=== PATIENT | male | born 1950 ===

== ENCOUNTER → 2017-10-22 | Outpatient (CLI) | payer MEDICARE, OTHER ==
[~2017-10-22] MED LIST: ATOR10 PO; Advil200 M1 PO; GLUC500 PO; UBID10 PO
== END | disposition home or self-care (01) ==
LOC: LAB SHORT 17:51 → LAB EV 17:51
DX: N41.9 Inflammatory disease of prostate, unspecified (principal)
CPT/HCPCS: 87077; 87086; 87186

== ENCOUNTER → 2019-08-03 | Outpatient (CLI) | payer MEDICARE ==
[2019-08-03 20:12] LABS: Microalb/Creat Ratio UR, Rand Unable to Calculate mg/g (0.000-30.000); Microalbumin, Random Urine <5.000 mg/L (0.000-20.000)
== END | disposition home or self-care (01) ==
LOC: LAB SHORT 12:50 → LAB 12:50
PROVIDERS: Hospitalist
DX: R03.0 Elevated blood-pressure reading, without diagnosis of hypertension (principal)
CPT/HCPCS: 82043; 82570

== ENCOUNTER 2020-09-20 13:09 | Day surgery (SDC) | payer MEDICARE | END 2020-09-20 15:28 | disposition home or self-care (01) | LOC: ORSCSDS 13:09 | PROC: 0DBL8ZX Excision of Transverse Colon, Via Natural or Artificial Opening Endoscopic, Diagnostic (ICD-10-PCS; principal; 2020-09-20) | PROC: 0DBP8ZX Excision of Rectum, Via Natural or Artificial Opening Endoscopic, Diagnostic (ICD-10-PCS; principal; 2020-09-20) | PROC: 0DBM8ZX Excision of Descending Colon, Via Natural or Artificial Opening Endoscopic, Diagnostic (ICD-10-PCS; principal; 2020-09-20) | DX: Z12.11 Encounter for screening for malignant neoplasm of colon (principal); Z86.010 Personal history of colon polyps; D12.4 Benign neoplasm of descending colon; D12.3 Benign neoplasm of transverse colon; D12.8 Benign neoplasm of rectum; K57.30 Diverticulosis of large intestine without perforation or abscess without bleeding; F17.210 Nicotine dependence, cigarettes, uncomplicated; Z79.899 Other long term (current) drug therapy ==

== ENCOUNTER 2023-09-10 09:10 | Day surgery (SDC) | payer OTHER ==
[~2023-09-10] VITALS: Ht 172.7 cm; Wt 86.0 kg
[~2023-09-10 09:10] MED LIST changes: +Balanced Salt Epinephrine Irrigation Solution 500 mL IR SCH; +Lidocaine HCl/Pf 1% 5 ML VIAL XX SCH; +Moxifloxacin HCL 0.5 MG/0.1 ML 0.4MLSYR RIGHTEYE SCH; +NS 500 ML IV ONE; +PHENYLEPHRINE\\TROPICAMIDE\\TETRACAINE OPHTHALMIC DILATING SOLN RIGHTEYE PRN; +Povidone-Iodine 450 DROP/30 ML Solution RIGHTEYE SCH; +Triamcinolone Inj Susp 40 MG / ML 1ML Vial INJ SCH; +Triamcinolone Inj Susp 40 MG / ML 1ML Vial ONE
[2023-09-10] MEDS ORDERED: OLMESARTAN MEDO20 MG PO (09:38)
[2023-09-10] MEDS ORDERED: TAMSULOSIN HCL0.4 M1 PO (09:38)
[2023-09-10] MEDS ORDERED: VITAMIN D3 (09:38)
[2023-09-10] MEDS ORDERED: LORA10ER PO (09:39)
[2023-09-10] MEDS ORDERED: MAGNESIUM (09:39)
--- NOTE | 2023-09-10 09:43 | NUR ---
09/10/23 0943 Ree Morillo AT 0938 PLECECILYET AT 0939
[2023-09-10] MEDS ORDERED: NS 500 ML IV ONE (09:52)
[2023-09-10] MEDS ORDERED: Midazolam HCl 1MG / ML 2ML Vial ONE (09:58)
[2023-09-10] MEDS ORDERED: FentaNYL Citrate 50 MCG/ML 2 ML Injection ONE (09:58)
[2023-09-10] MEDS ORDERED: Tetracaine HCl 0.5% Opth Soln 15 ml RIGHTEYE ONE (10:36)
[2023-09-10 12:11] VITALS: BP 124/78
== END 2023-09-10 11:29 | disposition home or self-care (01) ==
LOC: ORSCSDS 09:10
PROVIDERS: Ophthalmology
PROC: 08RJ3JZ Replacement of Right Lens with Synthetic Substitute, Percutaneous Approach (ICD-10-PCS; principal; 2023-09-10 10:30)
DX: H25.813 Combined forms of age-related cataract, bilateral (principal); H52.201 Unspecified astigmatism, right eye; E78.00 Pure hypercholesterolemia, unspecified; I10 Essential (primary) hypertension; Z79.899 Other long term (current) drug therapy; F17.210 Nicotine dependence, cigarettes, uncomplicated
CPT/HCPCS: J2250; J3010; J3301; J7040; V2632

== ENCOUNTER 2023-09-18 10:15 | Day surgery (SDC) | payer OTHER ==
[~2023-09-18] VITALS: Ht 172.7 cm; Wt 87.5 kg
[~2023-09-18 10:15] MED LIST changes: +LORA10ER PO; +MAGNESIUM; +Moxifloxacin HCL 0.5 MG/0.1 ML 0.4MLSYR LEFTEYE SCH; -Moxifloxacin HCL 0.5 MG/0.1 ML 0.4MLSYR RIGHTEYE SCH; +OLMESARTAN MEDO20 MG PO; +PHENYLEPHRINE\\TROPICAMIDE\\TETRACAINE OPHTHALMIC DILATING SOLN LEFTEYE PRN; -PHENYLEPHRINE\\TROPICAMIDE\\TETRACAINE OPHTHALMIC DILATING SOLN RIGHTEYE PRN; +Povidone-Iodine 450 DROP/30 ML Solution LEFTEYE SCH; -Povidone-Iodine 450 DROP/30 ML Solution RIGHTEYE SCH; +TAMSULOSIN HCL0.4 M1 PO; +VITAMIN D3
[2023-09-18] MEDS ORDERED: NS 500 ML IV ONE (11:05)
--- NOTE | 2023-09-18 11:09 | NUR ---
09/18/[address] NOTIFIED THAT PATIENT HAD COFFEE WITH CREAM AT MIDNIGHT, PER DR ALBRECHT TO PROCEED
[2023-09-18] MEDS ORDERED: Midazolam HCl 1MG / ML 2ML Vial ONE (11:27)
[2023-09-18] MEDS ORDERED: FentaNYL Citrate 50 MCG/ML 2 ML Injection ONE (11:42)
[2023-09-18] MEDS ORDERED: Tetracaine HCl 0.5% Opth Soln 15 ml LEFTEYE ONE (11:44)
[2023-09-18 12:18] VITALS: BP 129/70
== END 2023-09-18 12:31 | disposition home or self-care (01) ==
LOC: ORSCSDS 10:15
PROVIDERS: Ophthalmology
PROC: 08RK3JZ Replacement of Left Lens with Synthetic Substitute, Percutaneous Approach (ICD-10-PCS; principal; 2023-09-18 11:30)
DX: H25.812 Combined forms of age-related cataract, left eye (principal); H52.202 Unspecified astigmatism, left eye; I10 Essential (primary) hypertension; G62.9 Polyneuropathy, unspecified; I25.10 Atherosclerotic heart disease of native coronary artery without angina pectoris; Z79.899 Other long term (current) drug therapy
CPT/HCPCS: J2250; J3010; J3301; J7040; V2632